=== PATIENT | male | born 1965 | race Caucasian/White ===

== ENCOUNTER 2018-04-22 12:00 | Observation (INO) | payer BC, SELFPAY ==
[2018-04-22] VITALS (9 sets, daily range): BP systolic 109–135; BP diastolic 70–80; PULSE 62–114; RESP 14–23; TEMP 36.6–37.2; O2SAT 95–98; BMI 40.6; BMI 40.5
[2018-04-22] MEDS: Aspirin 81 MG TAB.CHEW 324 MG PO (12:57)
[2018-04-22 13:10] LABS: Absolute Neutrophil Count 6.4 X10^3/uL (2.0-7.7); Basophil# 0.07 X10^3/uL; Basophil% 0.7 % (0-1); Eosinophil# 0.21 X10^3/uL; Hematocrit 44.6 % (40-54); Hemoglobin 14.5 g/dl (13.0-16.5); Lymphocyte % 28.5 % (19-41); Mean Corp Hgb Conc 32.5 g/gl (32-36); Mean Corpuscular Hgb 29.5 pg (27.0-32.0); Mean Corpuscular Volume 90.7 fL (80-94); Mean Platelet Vol. 9.3 fl (6.2-12.0); Monocyte# 0.86 X10^3/uL; Monocyte% 8.2 % (0-10); Neutrophil # 6.36 X10^3/uL (2.7-7.7); Neutrophil % 60.3 % (47-70); POSITIVE COUNT NO; POSITIVE DIFFERENTIAL NO; POSITIVE MORPHOLOGY NO; Platelet Count 259 K/mm3 (150-450); RBC Distribution Width CV 14.5 % (11.6-14.6); RBC Distribution Width SD 47.8 fl (35.1-43.9); Red Blood Count 4.92 M/mm3 (4.6-6.2); White Blood Count 10.5 K/mm3 (4.4-11.0)
--- NOTE | 2018-04-22 13:10 | RAD_ITS ---
STUDY: X-RAY CHEST REASON FOR EXAM: Male, 52 years old. Atrial fibrillation TECHNIQUE: Portable upright chest COMPARISON: None. FINDINGS: The lungs are clear and expanded. Suspected underlying mild COPD/emphysema. Correlate smoking history. Borderline cardiomegaly. Normal mediastinal silhouette. No acute osseous or upper abdominal process. RAD/Chest 1 View (Portable) IMPRESSION: No acute cardiopulmonary process. Electronically Signed: Oni Bragg, at 14:51 EDT Tel , Service support ,
[2018-04-22 13:27] LABS: Anion Gap 8 (5-15); BUN 11 mg/dL (7-18); BUN/Creat Ratio 8.9 RATIO (10-20); Calcium,Total 8.8 mg/dL (8.5-10.1); Chloride 103 mmol/L (98-107); Creatinine, Serum 1.23 mg/dL (0.70-1.30); EST Glomerular Filtration Rate 66 mL/min (>60); Est Glom Filt Rate - Afr Amer 80 mL/min (>60); Estimated Creatinine Clearance 71.05 ml/min; Glucose 224 mg/dL (74-106); Potassium 3.8 mmol/L (3.5-5.1); Sodium Level 138 mmol/L (136-145)
--- NOTE | 2018-04-22 15:35 | ED.VISSUMM ---
- ER Visit Summary Date of Service: 04/22/18 Chief Complaint: Fluttering in chest History of Present Illness: The patient is a 52 M with palpitations that started earlier today around 1130. It lasted about 15 minutes. He felt funny and became sweaty. He had some discomfort in his right throat. He denies any history of coronary disease, but he has multiple family members with coronary disease. He has a history of hypertension and smoking. His BMI is 40.6. He has never had a cardiac evaluation. Physical Examination: Patient is afebrile and vital signs are unremarkable except for heart rate of 109. The patient is sitting comfortably. No acute distress. Heart regular rate and rhythm. Lungs clear. Abdomen soft. Extremities nontender with no edema. Pulses strong and equal. Skin normal in color without pallor or diaphoresis. Test Results: EKG shows sinus rhythm at a rate of 110. No acute ischemia or infarction. No dysrhythmia noted. CBC, BMP, and troponin unremarkable except for a glucose of 224. Chest x-ray showed no acute findings. Emergency Department Course and Treatment: Patient placed on a monitor and treated with aspirin. Heart score is 4 and EMMA score is 1. I am recommending observation for cardiac testing. Will discuss with the hospitalist for further care. Treatment Plan: As above Disposition: Admission Impression: 1. Palpitations This note was generated with BackTrack dictation software. It may contain incorrect words, spelling, and punctuation that were not noted in review of the chart prior to signing ED Disposition - Plan for ED Patient: Chief Complaint: Palpitations Referrals: Care Physician,No Primary [Primary Care Provider] -
--- NOTE | 2018-04-22 16:28 | PCM.HP.STD ---
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 Patient did not have any chest pain whatsoever. 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 Patient did feel diaphoretic during the episode. Once the palpitations resolved patient was completely asymptomatic. Patient has never had any issues with this before. [] Past Medical History Medical History: Medical History (Last Updated 04/22/18 @ 16:30 by Reinier Min DO) HTN (hypertension) I10 Allergies Penicillins [PCN] Allergy (Verified 04/22/18 12:03) Hives Home Medications: Ambulatory Orders Medication Instructions Recorded Amlodipine [Norvasc] 5 mg PO DAILY 04/22/18 Lisinopril [Zestril] 40 mg PO DAILY 04/22/18 Psychiatric History: Anxiety Lives: Spouse/ Significant Other Smoking Status: Heavy Smoker (>10/day) Tobacco Use: Cigarettes Alcohol: None Drugs: None - *Family History Paternal History Items: Heart Disease Review of Systems Constitutional: Denies: Chills, Fever, Weight Change HEENT: Denies: Head Aches, Sinus Congestion, Sinus Drainage Cardiovascular: Reports: Palpitations. Denies: Chest Pain, Edema Respiratory: Denies: Cough, Shortness of breath at rest, Sputum production Gastrointestinal: Denies: Abdominal Pain, Nausea, Vomiting Genitourinary: Denies: Dysuria Musculoskeletal: Denies: Joint Pain, Joint Tenderness Skin: Denies: Rash, Wounds Neurological: Denies: Numbness, Tingling, Focal weakness Psychiatric: Denies: Anxiety, Depression, Homicidal Ideations, Suicidal Ideations Hematologic/ Lymphatic: Denies: Easy Bruising, Easy Bleeding, Hx of blood clot Comment: All review of systems are negative except as mentioned in the history of present illness and the other review of systems. VTE Information - Inpt Only VTE Present on Admission: No VTE Pharm Prophylaxis ordered?: Yes Patient Problems: Active and Suspected Problems Palpitations (Acute) - Physical Exam General: Alert, No apparent distress HEENT: Atraumatic, Normocephalic Oral: Moist Mucosa Neck: No Nodes, Thyroid Normal Size and Texture Lungs: Clear to auscultation, Normal air movement Cardiovascular: Regular rate, Regular Rhythm, Normal S1, Normal S2, No murmurs Abdomen: Bowel Sounds Present, Soft, Non Tender Extremities: No edema, No Calf Tenderness Skin: No rashes, No breakdown Musculoskeletal: No Tenderness to Palpation of Joints or Extremities Psych/Mental Status: Normal Affect, Appropriate Vital Signs Temp Pulse Resp BP Pulse Ox 36.9 C 78 16 117/74 96 04/22/18 12:01 04/22/18 16:05 04/22/18 16:05 04/22/18 16:05 04/22/18 16:05 Oxygen Flow Rate (L/min) 2 Oxygen Delivery Method Room Air Weight: 124.738 kg Body Mass Index (BMI) 40.6 Laboratory Tests Past 24 Hrs 04/22/18 04/22/18 12:10 12:10 WBC 10.5 RBC 4.92 Hgb 14.5 Hct 44.6 MCV 90.7 MCH 29.5 MCHC 32.5 RDW 14.5 RDW Differential 47.8 H Plt Count 259 MPV 9.3 Immature Gran % (Auto) 0.300 Neut % (Auto) 60.3 Lymph % (Auto) 28.5 Burke % (Auto) 8.2 Eos % (Auto) 2.0 Baso % (Auto) 0.7 Absolute Neuts (auto) 6.4 Absolute Lymphs (auto) 3.00 Total Counted Not Reportable Sodium 138 Potassium 3.8 Chloride 103 Carbon Dioxide 27.0 Anion Gap 8 BUN 11 Creatinine 1.23 Estim Creat Clear Calc 71.05 Est GFR (MDRD) Af Amer 80 Est GFR (MDRD) Non-Af 66 BUN/Creatinine Ratio 8.9 L Glucose 224 H Calcium 8.8 Troponin I < 0.015 EKG reviewed and showed no acute changes. Chest x-ray reviewed and showed no infiltrate nor edema. Assessment/Plan All Active Problems Palpitations (Acute) 1. Palpitations Concern for chest pain equivalent Patient will have troponins cycled and will undergo a stress test Patient will be monitored on telemetry. If cardiac workups comes back unremarkable then would recommend patient following up with his primary care doctor for evaluation of an event monitor. Check lipid panel and TSH 2. Hyperglycemia Patient denies any history of diabetes but his glucose was 224 Will put the patient on sliding scale insulin as well as check an A1c 3. DVT prophylaxis: Lovenox Code Visit OBSV E&M: 00208 Initial observation care L2
--- NOTE | 2018-04-22 16:33 | HP.PCM_ITS ---
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 Patient did not have any chest pain whatsoever. 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 Patient did feel diaphoretic during the episode. Once the palpitations resolved patient was completely asymptomatic. Patient has never had any issues with this before. [] Past Medical History Medical History: Medical History (Last Updated 04/22/18 @ 16:30 by Reinier Min DO) HTN (hypertension) I10 Allergies Penicillins [PCN] Allergy (Verified 04/22/18 12:03) Hives Home Medications: Ambulatory Orders Medication Instructions Recorded Amlodipine [Norvasc] 5 mg PO DAILY 04/22/18 Lisinopril [Zestril] 40 mg PO DAILY 04/22/18 Psychiatric History: Anxiety Lives: Spouse/ Significant Other Smoking Status: Heavy Smoker (>10/day) Tobacco Use: Cigarettes Alcohol: None Drugs: None - *Family History Paternal History Items: Heart Disease Review of Systems Constitutional: Denies: Chills, Fever, Weight Change HEENT: Denies: Head Aches, Sinus Congestion, Sinus Drainage Cardiovascular: Reports: Palpitations. Denies: Chest Pain, Edema Respiratory: Denies: Cough, Shortness of breath at rest, Sputum production Gastrointestinal: Denies: Abdominal Pain, Nausea, Vomiting Genitourinary: Denies: Dysuria Musculoskeletal: Denies: Joint Pain, Joint Tenderness Skin: Denies: Rash, Wounds Neurological: Denies: Numbness, Tingling, Focal weakness Psychiatric: Denies: Anxiety, Depression, Homicidal Ideations, Suicidal Ideations Hematologic/ Lymphatic: Denies: Easy Bruising, Easy Bleeding, Hx of blood clot Comment: All review of systems are negative except as mentioned in the history of present illness and the other review of systems. VTE Information - Inpt Only VTE Present on Admission: No VTE Pharm Prophylaxis ordered?: Yes Patient Problems: Active and Suspected Problems Palpitations (Acute) - Physical Exam General: Alert, No apparent distress HEENT: Atraumatic, Normocephalic Oral: Moist Mucosa Neck: No Nodes, Thyroid Normal Size and Texture Lungs: Clear to auscultation, Normal air movement Cardiovascular: Regular rate, Regular Rhythm, Normal S1, Normal S2, No murmurs Abdomen: Bowel Sounds Present, Soft, Non Tender Extremities: No edema, No Calf Tenderness Skin: No rashes, No breakdown Musculoskeletal: No Tenderness to Palpation of Joints or Extremities Psych/Mental Status: Normal Affect, Appropriate Vital Signs Temp Pulse Resp BP Pulse Ox 36.9 C 78 16 117/74 96 04/22/18 12:01 04/22/18 16:05 04/22/18 16:05 04/22/18 16:05 04/22/18 16:05 Oxygen Flow Rate (L/min) 2 Oxygen Delivery Method Room Air Weight: 124.738 kg Body Mass Index (BMI) 40.6 Laboratory Tests Past 24 Hrs 04/22/18 04/22/18 12:10 12:10 WBC 10.5 RBC 4.92 Hgb 14.5 Hct 44.6 MCV 90.7 MCH 29.5 MCHC 32.5 RDW 14.5 RDW Differential 47.8 H Plt Count 259 MPV 9.3 Immature Gran % (Auto) 0.300 Neut % (Auto) 60.3 Lymph % (Auto) 28.5 Elliott % (Auto) 8.2 Eos % (Auto) 2.0 Baso % (Auto) 0.7 Absolute Neuts (auto) 6.4 Absolute Lymphs (auto) 3.00 Total Counted Not Reportable Sodium 138 Potassium 3.8 Chloride 103 Carbon Dioxide 27.0 Anion Gap 8 BUN 11 Creatinine 1.23 Estim Creat Clear Calc 71.05 Est GFR (MDRD) Af Amer 80 Est GFR (MDRD) Non-Af 66 BUN/Creatinine Ratio 8.9 L Glucose 224 H Calcium 8.8 Troponin I < 0.015 EKG reviewed and showed no acute changes. Chest x-ray reviewed and showed no infiltrate nor edema. Assessment/Plan All Active Problems Palpitations (Acute) 1. Palpitations * Concern for chest pain equivalent * Patient will have troponins cycled and will undergo a stress test * Patient will be monitored on telemetry. If cardiac workups comes back unremarkable then would recommend patient following up with his primary care doctor for evaluation of an event monitor. * Check lipid panel and TSH 2. Hyperglycemia * Patient denies any history of diabetes but his glucose was 224 * Will put the patient on sliding scale insulin as well as check an A1c 3. DVT prophylaxis: Lovenox Code Visit OBSV E&M: 89244 Initial observation care L2
--- NOTE | 2018-04-22 16:41 | NURSING ---
CALLED [facility] IN ER. MEADE TO SEND PT.
[2018-04-22 17:31] LABS: Bedside Glucose 107 mg/dL (70-110)
[2018-04-22 17:37] LABS: Hemoglobin A1c 7.2 % (4.2-6.3)
[2018-04-22 21:51] LABS: Bedside Glucose 170 mg/dL (70-110)
[2018-04-23] VITALS (7 sets, daily range): BP systolic 108–128; BP diastolic 66–78; PULSE 40–84; RESP 14–18; TEMP 36.8–36.9; O2SAT 94–97
[2018-04-23 05:06] LABS: Hematocrit 41.3 % (40-54); Mean Corp Hgb Conc 31.5 g/gl (32-36); Mean Corpuscular Hgb 28.6 pg (27.0-32.0); Mean Platelet Vol. 9.1 fl (6.2-12.0); Platelet Count 231 K/mm3 (150-450); RBC Distribution Width CV 14.6 % (11.6-14.6); RBC Distribution Width SD 47.7 fl (35.1-43.9); Red Blood Count 4.54 M/mm3 (4.6-6.2); Scan Indicated on CBC? Y/N NO; White Blood Count 9.4 K/mm3 (4.4-11.0)
[2018-04-23 05:09] LABS: Partial Thromboplast Time 24.3 Seconds (24.1-36.2)
[2018-04-23 05:26] LABS: Anion Gap 9 (5-15); BUN 13 mg/dL (7-18); BUN/Creat Ratio 13.2 RATIO (10-20); Calcium,Total 8.3 mg/dL (8.5-10.1); Chloride 108 mmol/L (98-107); Cholesterol 182 mg/dL (200); Creatinine, Serum 0.98 mg/dL (0.70-1.30); EST Glomerular Filtration Rate 85 mL/min (>60); Est Glom Filt Rate - Afr Amer 103 mL/min (>60); Estimated Creatinine Clearance 89.18 ml/min; Glucose 118 mg/dL (74-106); High Density Lipoprotein 27 mg/dL; Sodium Level 143 mmol/L (136-145); Thyroid Stim Hormone (TSH) 2.27 uIU/mL (0.358-3.74); Triglycerides 208 mg/dL; Very Low Density Lipoprotein 42 mg/dL (5-40)
--- NOTE | 2018-04-23 05:55 | NM_ITS ---
CLINICAL: 52-year-old hypertensive, diabetic male with reported history of palpitations. REST-REGADENOSON 99m Tc SESTAMIBI MYOCARDIAL PERFUSION SPECT COMPARISON: None available FINDINGS: Following the intravenous administration of 15.0 mCi of 99m Tc sestamibi, the resting attenuation corrected myocardial perfusion acquisitions demonstrate uniform radiopharmaceutical concentration throughout all left ventricular segments. The patient was administered intravenous regadenoson (0.4 mgm). Following the intravenous administration of 5.0 mCi of 99m Tc sestamibi, the post regadenoson attenuation corrected images reveal likewise normal perfusion throughout all left ventricular myocardial segments. The post stress resting left ventricular ejection fraction is calculated to be 64.0 % by gated SPECT technique. Wall motion and end systolic thickening are considered normal. NM/Nuclear Stress Test - Chemical IMPRESSION: 1. NORMAL REST-REGADENOSON STRESS 99m Tc SESTAMIBI MYOCARDIAL PERFUSION SPECT. A. No evidence of pharmacologically induced left ventricular ischemia. B. Preservation of resting left ventricular systolic function. (Sonia et al, J Nucl Med 37: 105P, 1995). Electronically Signed: Oni Escalera DO at 14:20 EDT Tel , Service support ,
[2018-04-23] MEDS: Lisinopril 40 MG Tablet PO (06:01)
[2018-04-23] MEDS: Aspirin E.C. 81 MG Tablet PO (06:01)
[2018-04-23 06:56] LABS: Bedside Glucose 136 mg/dL (70-110)
--- NOTE | 2018-04-23 09:42 | PCM.CONS.C ---
Problem List (1) Palpitations Status: Acute Reason for Consult Date of Consultation: 04/23/18 History of Present Illness: The patient is a 52 year old M with past medical history significant for hypertension. 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 He felt his heart racing. No associated chest pain, neck tightness or shortness of breath. No syncope or presyncope. [place] a little lightheaded though. The symptoms lasted a few minutes and then resolve on their own. According to the patient, he broke out into cold sweat with them. Denies any previous such symptoms. Denies any history of angina or dyspnea either at rest or with exertion. Denies any previous history of cardiac rhythm problems. [] Past Medical History Allergies/Adverse Reactions: Allergies Penicillins [PCN] Allergy (Verified 04/22/18 12:03) Hives Home Medications: Ambulatory Orders Medication Instructions Recorded Amlodipine [Norvasc] 5 mg PO DAILY 04/22/18 Lisinopril [Zestril] 40 mg PO DAILY 04/22/18 Psychiatric History: Anxiety - *Family History Paternal History Items: Heart Disease Lives: Spouse/ Significant Other Smoking Status: Heavy Smoker (>10/day) Tobacco Use: Cigarettes Alcohol: None Drugs: None Review of Systems - Review of Systems General: Denies: Fever, Chills, Night Sweats, Anorexia, Weight Loss Cardiovascular: Denies: Chest Discomfort, Chest Discomfort at Rest, Chest Discomfort with Exertion, Chest Pressure, Chest Tightness, Chest Heaviness, Shortness of Breath, Shortness of Breath at Rest, Orthopnea, PND Respiratory: Reports: - - Snores loudly at night. Also admits to having apneic episodes. Suspects he has sleep apnea Gastrointestinal: Denies: Abdominal Discomfort, Jaundice, Nausea, Emesis, Hematemesis Neurological: Denies: History of TIA, History of CVA Psychiatric: Denies: Anxiety, Depression Endocrine: Denies: Heat Intolerance, Cold Intolerance Hematologic/ Lymphatic: Denies: Easy Brusing, Easy Bleeding Subjectve: Appears comfortable. Abdominal obesity Objective: Vital Signs Temp Pulse Resp BP Pulse Ox 98.4 F 77 14 128/66 H 97 04/23/18 05:00 04/23/18 07:21 04/23/18 05:00 04/23/18 05:00 04/23/18 05:00 Oxygen Delivery Method Room Air Weight: 124.5 kg Body Mass Index (BMI) 40.5 Intake and Output for Last 24 Hours 04/21/18 04/22/18 04/23/18 23:59 23:59 23:59 Intake Total 580 / 580 60 / 60 Balance 580 / 580 60 / 60 General: Healthy Appearing, Awake, Alert, Oriented x 3, Obese HEENT: Atraumatic, Normocephalic Oral: Moist Mucosa Neck: Supple Lungs: Clear to auscultation Cardiovascular: Regular Rhythm, Normal S1, Normal S2 Abdomen: Bowel Sounds Present, Soft Extremities: No edema Neurological: No Focal Motor or Sensory Deficit Psych/Mental Status: Appropriate 04/22/18 23:24: Troponin I < 0.015 04/23/18 02:25: Troponin I < 0.015 04/23/18 04:50: Sodium 143, Potassium 4.0, Chloride 108 H, Carbon Dioxide 26.0, Anion Gap 9, BUN 13, Creatinine 0.98, Est GFR (MDRD) Af Amer 103, Est GFR (MDRD) Non-Af 85, BUN/Creatinine Ratio 13.2, Glucose 118 H, Calcium 8.3 L, Troponin I < 0.015, Triglycerides 208 H, Cholesterol 182, LDL Cholesterol 113, VLDL Cholesterol 42 H, HDL Cholesterol 27 L 04/23/18 04:50: WBC 9.4, RBC 4.54 L, Hgb 13.0, Hct 41.3, MCV 91.0, MCH 28.6, MCHC 31.5 L, RDW 14.6, RDW Differential 47.7 H, Plt Count 231, MPV 9.1 04/23/18 04:50: PT 13.0, INR 1.0, APTT 24.3 Rhythm: Normal sinus rhythm. Marked sinus arrhythmia during the night EKG: Normal sinus rhythm ECHO: Pending Stress Test: Pending Cardiac Cath: PCI: CT Surgery: Holter monitor: EPS: PPM: CXR: Chest CT Scan: Assessment/Plan 1. Transient palpitations with diaphoresis. Patient already had pharmacological stress test and an echocardiogram done this morning. Await results. If they failed to show any significant abnormality, then will recommend event monitoring as outpatient to evaluate for paroxysmal atrial fibrillation 2. Symptoms strongly suggestive of sleep apnea. Consider sleep study. Follow as per primary care physician. Discussed with patient 3. Obesity. Counseled to lose weight 4. Check d-dimer
[2018-04-23] MEDS: amLODIPine 5 MG Tablet PO (09:51)
--- NOTE | 2018-04-23 10:25 | ECHOCS_ITS ---
Reason For Study: Palpitations Procedure This was a 2D Doppler, Color Flow transthoracic echocardiogram. The study was technically difficult. Due to body habitus. Contrast injection was performed. Exam performed portable in patient room. Left Ventricle Normal size and thickness. The estimated ejection fraction is 65 %. No evidence for diastolic dysfunction. Right Ventricle Normal RV size. Normal systolic function. Atria The left atrium is mildly enlarged. Normal right atrium. Mitral Valve The mitral valve is structurally normal. No prolapse or stenosis seen. Tricuspid Valve Normal tricuspid valve. Trivial tricuspid valve insufficiency. Aortic Valve Not well visualized in short axis. There is no aortic stenosis. No aortic valve insufficiency. Pulmonic Valve The pulmonic valve is not well visualized. Great Vessels Normal inferior vena cava. Pericardium/Pleural Epicardial fat. Medication Diluted definity 4.0ml given slow IV push to enhance endocardial definition. MMode/2D Measurements & Calculations LVIDd: 5.1 cm IVSd: 1.4 cm Ao root diam: 3.3 cm LVIDs: 3.1 cm LVPWd: 1.3 cm LA dimension: 3.7 cm RVDd: 3.3 cm FS: 38.8 % LAV(MOD-bp): 76.8 ml LAV(MOD-bp) Indexed: 32.5 ml/m2 LA A4 area: 25.0 cm2 RA A4 area: 14.8 cm2 LAV(MOD-sp2): 68.8 ml LAV(MOD-sp4): 78.1 ml Doppler Measurements & Calculations MV E max pako: 113.5 cm/sec Lat Peak E' Pako: 12.3 cm/sec Med Peak E' Pako: 13.8 cm/sec MV A max pako: 74.6 cm/sec E/E' lat: 9.3 E/E' med: 8.2 MV E/A: 1.5 Ao V2 max: 162.9 cm/sec LV V1 max: 111.0 cm/sec PA V2 max: 110.5 cm/sec Ao max P.6 mmHg LV V1 max P.9 mmHg TR max pako: 176.2 cm/sec TR max P.4 mmHg Interpretation Summary The estimated ejection fraction is 65 %. No evidence for diastolic dysfunction. The left atrium is mildly enlarged. Ordering Physician: Julieta Lay Performed By: Yudith Tang RDCS, RVT
[2018-04-23 10:26] LABS: D-Dimer Quantitative (DVT/PE) 0.37 FEU/ug/m (0.27-0.49)
[2018-04-23 12:30] LABS: Bedside Glucose 142 mg/dL (70-110)
--- NOTE | 2018-04-23 13:27 | PCM.PN.HOSP ---
Patient Problems: Active and Suspected Problems (Last Updated 04/22/18 @ 16:30 by Reinier Min DO) Palpitations (Acute) Subjective: No chest pain, nor palpitations. Vitals/I&O's: Vital Signs Temp Pulse Resp BP Pulse Ox 36.9 C 84 18 117/77 94 04/23/18 09:54 04/23/18 11:32 04/23/18 09:54 04/23/18 09:54 04/23/18 09:54 Oxygen Delivery Method Room Air Weight: 124.5 kg Body Mass Index (BMI) 40.5 Intake and Output for Last 24 Hours 04/21/18 04/22/18 04/23/18 23:59 23:59 23:59 Intake Total 580 / 580 410 / 410 Balance 580 / 580 410 / 410 General: Alert, Cooperative, No apparent distress HEENT: Atraumatic, Normocephalic Oral: Moist Mucosa, No Gingival or Mucosal Lesions/ Ulcerations Neck: No Nodes, Thyroid Normal Size and Texture Lungs: Clear to auscultation, Normal air movement, No rhonchi, No wheeze Cardiovascular: Regular rate, Regular Rhythm, Normal S1, Normal S2, No murmurs Abdomen: Bowel Sounds Present, Soft, Non Tender, Non-Distended, No Hepato-splenomegaly Extremities: No edema, No Calf Tenderness Skin: No rashes, No breakdown Psych/Mental Status: Normal Affect, Appropriate Laboratory Results 04/22/18 17:26: POC Glucose 107 04/22/18 21:42: POC Glucose 170 H 04/22/18 23:24: Troponin I < 0.015 04/23/18 02:25: Troponin I < 0.015 04/23/18 04:50: Sodium 143, Potassium 4.0, Chloride 108 H, Carbon Dioxide 26.0, Anion Gap 9, BUN 13, Creatinine 0.98, Estim Creat Clear Calc 89.18, Est GFR (MDRD) Af Amer 103, Est GFR (MDRD) Non-Af 85, BUN/Creatinine Ratio 13.2, Glucose 118 H, Calcium 8.3 L, Troponin I < 0.015, Triglycerides 208 H, Cholesterol 182, LDL Cholesterol 113, VLDL Cholesterol 42 H, HDL Cholesterol 27 L, TSH 2.27 04/23/18 04:50: WBC 9.4, RBC 4.54 L, Hgb 13.0, Hct 41.3, MCV 91.0, MCH 28.6, MCHC 31.5 L, RDW 14.6, RDW Differential 47.7 H, Plt Count 231, MPV 9.1 04/23/18 04:50: PT 13.0, INR 1.0, APTT 24.3 04/23/18 04:50: D-Dimer Quant (PE/DVT) 0.37 04/23/18 06:49: POC Glucose 136 H 04/23/18 12:24: POC Glucose 142 H Current Medications Acetaminophen (Tylenol) 650 mg PO Q6H PRN PRN PRN Reason: Mild Pain (1-3)/Temp > 100.7 F Amlodipine Besylate (Norvasc) 5 mg PO DAILY [facility] Last Admin: 04/23/18 09:51 Dose: 5 mg Aspirin (Ecotrin) 81 mg PO DAILY@0800 [facility] Last Admin: 04/23/18 06:01 Dose: 81 mg Dextrose (D50w Syringe) 0 gm IV X1 PRN; Protocol PRN Reason: Hypoglycemia Enoxaparin Sodium (Lovenox) 40 mg SC DAILY@1000 [facility] Last Admin: 04/23/18 09:51 Dose: Not Given Glucagon () 1 mg IM .X1 PRN PRN Reason: Hypoglycemia Insulin Human Lispro (Humalog Kwikpen (Bkc)) 0 unit SQ TIDAC [facility] PRN Reason: Protocol Last Admin: 04/23/18 12:28 Dose: Not Given Lisinopril (Zestril) 40 mg PO DAILY [facility] Last Admin: 04/23/18 06:01 Dose: 40 mg Lorazepam (Ativan) 0.5 mg PO Q12H PRN PRN PRN Reason: ANXIETY Magnesium Hydroxide (Milk Of Magnesia) 30 ml PO DAILY PRN PRN Reason: Constipation Nitroglycerin (Nitrostat) 0.4 mg SUBLINGUAL Q5M PRN PRN Reason: CHEST PAIN Ondansetron HCl (Zofran) 4 mg IV Q8H PRN PRN PRN Reason: NAUSEA Oxycodone HCl (Oxyir) 5 - 10 mg PO Q4H PRN PRN PRN Reason: MOD-SEVERE PAIN (4-10/10) Sodium Chloride () 5 - 30 ml IV UD PRN PRN Reason: SALINE FLUSH Medical Necessity - Tobacco Use Smoking Status: Heavy Smoker (>10/day) Tobacco Use: Cigarettes Assessment/Plan All Active Problems (Last Updated 04/22/18 @ 16:30 by Reinier Min DO) Palpitations (Acute) 1. Palpitations Concern for chest pain equivalent Patient will have troponins cycled and will undergo a stress test Patient will be monitored on telemetry. If cardiac workups comes back unremarkable then would recommend patient following up with his primary care doctor for evaluation of an event monitor. Check lipid panel and TSH Echo showed an EF 65% Stress test pending. 2. DM2 Blood sugars have been consistently elevated. Initial recommendation is modifying diet, but may ultimately require medication. 3. DVT prophylaxis: Lovenox Code Visit OBSV E&M: 47510 Subsequent observation care L2
--- NOTE | 2018-04-23 13:31 | PN_ITS ---
Patient Problems: Active and Suspected Problems (Last Updated 04/22/18 @ 16:30 by Reinier Min DO ) Palpitations (Acute) Subjective: No chest pain, nor palpitations. Vitals/I&O's: Vital Signs Temp Pulse Resp BP Pulse Ox 36.9 C 84 18 117/77 94 04/23/18 09:54 04/23/18 11:32 04/23/18 09:54 04/23/18 09:54 04/23/18 09:54 Oxygen Delivery Method Room Air Weight: 124.5 kg Body Mass Index (BMI) 40.5 Intake and Output for Last 24 Hours 04/21/18 04/22/18 04/23/18 23:59 23:59 23:59 Intake Total 580 / 580 410 / 410 Balance 580 / 580 410 / 410 General: Alert, Cooperative, No apparent distress HEENT: Atraumatic, Normocephalic Oral: Moist Mucosa, No Gingival or Mucosal Lesions/ Ulcerations Neck: No Nodes, Thyroid Normal Size and Texture Lungs: Clear to auscultation, Normal air movement, No rhonchi, No wheeze Cardiovascular: Regular rate, Regular Rhythm, Normal S1, Normal S2, No murmurs Abdomen: Bowel Sounds Present, Soft, Non Tender, Non-Distended, No Hepato- splenomegaly Extremities: No edema, No Calf Tenderness Skin: No rashes, No breakdown Psych/Mental Status: Normal Affect, Appropriate Laboratory Results 04/22/18 17:26: POC Glucose 107 04/22/18 21:42: POC Glucose 170 H 04/22/18 23:24: Troponin I < 0.015 04/23/18 02:25: Troponin I < 0.015 04/23/18 04:50: Sodium 143, Potassium 4.0, Chloride 108 H, Carbon Dioxide 26.0, Anion Gap 9, BUN 13, Creatinine 0.98, Estim Creat Clear Calc 89.18, Est GFR ( MDRD) Af Amer 103, Est GFR (MDRD) Non-Af 85, BUN/Creatinine Ratio 13.2, Glucose 118 H, Calcium 8.3 L, Troponin I < 0.015, Triglycerides 208 H, Cholesterol 182, LDL Cholesterol 113, VLDL Cholesterol 42 H, HDL Cholesterol 27 L, TSH 2.27 04/23/18 04:50: WBC 9.4, RBC 4.54 L, Hgb 13.0, Hct 41.3, MCV 91.0, MCH 28.6, MCHC 31.5 L, RDW 14.6, RDW Differential 47.7 H, Plt Count 231, MPV 9.1 04/23/18 04:50: PT 13.0, INR 1.0, APTT 24.3 04/23/18 04:50: D-Dimer Quant (PE/DVT) 0.37 04/23/18 06:49: POC Glucose 136 H 04/23/18 12:24: POC Glucose 142 H Current Medications Acetaminophen (Tylenol) 650 mg PO Q6H PRN PRN PRN Reason: Mild Pain (1-3)/Temp > 100.7 F Amlodipine Besylate (Norvasc) 5 mg PO DAILY [facility] Last Admin: 04/23/18 09:51 Dose: 5 mg Aspirin (Ecotrin) 81 mg PO DAILY@0800 [facility] Last Admin: 04/23/18 06:01 Dose: 81 mg Dextrose (D50w Syringe) 0 gm IV X1 PRN; Protocol PRN Reason: Hypoglycemia Enoxaparin Sodium (Lovenox) 40 mg SC DAILY@1000 [facility] Last Admin: 04/23/18 09:51 Dose: Not Given Glucagon () 1 mg IM .X1 PRN PRN Reason: Hypoglycemia Insulin Human Lispro (Humalog Kwikpen (Bkc)) 0 unit SQ TIDAC [facility] PRN Reason: Protocol Last Admin: 04/23/18 12:28 Dose: Not Given Lisinopril (Zestril) 40 mg PO DAILY [facility] Last Admin: 04/23/18 06:01 Dose: 40 mg Lorazepam (Ativan) 0.5 mg PO Q12H PRN PRN PRN Reason: ANXIETY Magnesium Hydroxide (Milk Of Magnesia) 30 ml PO DAILY PRN PRN Reason: Constipation Nitroglycerin (Nitrostat) 0.4 mg SUBLINGUAL Q5M PRN PRN Reason: CHEST PAIN Ondansetron HCl (Zofran) 4 mg IV Q8H PRN PRN PRN Reason: NAUSEA Oxycodone HCl (Oxyir) 5 - 10 mg PO Q4H PRN PRN PRN Reason: MOD-SEVERE PAIN (4-10/10) Sodium Chloride () 5 - 30 ml IV UD PRN PRN Reason: SALINE FLUSH Medical Necessity - Tobacco Use Smoking Status: Heavy Smoker (>10/day) Tobacco Use: Cigarettes Assessment/Plan All Active Problems (Last Updated 04/22/18 @ 16:30 by Reniier Min DO) Palpitations (Acute) 1. Palpitations * Concern for chest pain equivalent * Patient will have troponins cycled and will undergo a stress test * Patient will be monitored on telemetry. If cardiac workups comes back unremarkable then would recommend patient following up with his primary care doctor for evaluation of an event monitor. * Check lipid panel and TSH * Echo showed an EF 65% * Stress test pending. 2. DM2 * Blood sugars have been consistently elevated. * Initial recommendation is modifying diet, but may ultimately require medication. 3. DVT prophylaxis: Lovenox Code Visit OBSV E&M: 13512 Subsequent observation care L2
--- NOTE | 2018-04-23 14:40 | DCINST_ITS ---
- Discharge Diagnoses Current Active Problems: Current Active and Chronic Problems (Last Updated 04/22/18 @ 16:30 by Reinier Min DO) Palpitations (Acute) You will use the following diet at home:: No restrictions Your food should be the consistency of: Regular Your liquids should be the consistency of: Regular/Thin Discharge Activity: Return to Normal Activity Call your doctor if you observe: Fever of 101 or Higher, Fainting spells, Chest pain, Increased palpitations (irregular heartbeat) Allergies/Adverse Reactions: Allergies Penicillins [PCN] Allergy (Verified 04/22/18 12:03) Hives Medications to take at Discharge Amlodipine [Norvasc] 5 mg PO DAILY 04/22/18 Lisinopril [Zestril] 40 mg PO DAILY 04/22/18 Primary Care Physician: Care Physician,No Primary [Primary Care Provider] - Test Results: Test results from this visit will be discussed in further detail at your follow- up appointment, if applicable. Please Follow Up With: [facility] - follow up for palpitations When: 2-4 weeks Proposed Discharge Date: 04/23/18
--- NOTE | 2018-04-23 14:41 | DS.PCM_ITS ---
Discharge Date and Diagnosis - Problem List Patient Problems: Active and Suspected Problems (Last Updated 04/22/18 @ 16:30 by Reinier Min DO ) Palpitations (Acute) Date of Admission: 04/22/18 Date of Discharge: 04/23/18 - Primary Discharge Diagnosis Active and Suspected Problems (Last Updated 04/22/18 @ 16:30 by Reinier Min DO ) Palpitations (Acute) Hospital Course and Treatment Imaging Results: 04/23/18 05:55 Nuclear Stress Test - Chemical [NM] AM (NON MEDS) 04/23/18 10:25 Echo Complete W/ Contrast [ECHO] Routine [facility]ire[facility] Procedures: 2-D Echocardiogram, Stress test Summary of Care Provided: The patient is a 52 year old M presents with palpitations. Patient was evaluated for chest pain equivalents. Patient underwent an echocardiogram that was unremarkable as well as a stress test. Heart rhythm was normal no any atrial fibrillation. Patient will need follow-up with cardiology in regards to getting arrange for monitor. Patient never had palpitations before. Patient also needs to be established with a primary care physician as well. [] Discharge Diet: No Restrictions Discharge Activity: Return to Normal Activity Call your doctor if you observe: Fever of 101 or Higher, Fainting spells, Chest pain, Increased palpitations (irregular heartbeat) Home Medications: Medications to take at Discharge Amlodipine [Norvasc] 5 mg PO DAILY 04/22/18 Lisinopril [Zestril] 40 mg PO DAILY 04/22/18 Primary Care Physician: Care Physician,No Primary [Primary Care Provider] - Please Follow Up With: [facility] - follow up for palpitations When: 2-4 weeks Disposition: Home Minutes spent on discharge:: 28 Patient Condition:: Good Medical Necessity - Tobacco Use Smoking Status: Heavy Smoker (>10/day) Tobacco Use: Cigarettes Meaningful Use Info Meaningful Use Diagnoses (Choose all that apply): None applicable Code Visit OBSV E&M: 18715 Observation care discharge
--- NOTE | 2018-04-25 15:26 | STRESSREP ---
Stress Test Report Pharmacologic myocardial perfusion stress test. 52-year-old man with a history of chest pain. Stress protocol: Resting EKG demonstrates normal sinus rhythm with rate of 78 bpm normal intervals and noted. 0.4 mg of regadenoson was infused per usual protocol from followed by rapid intravenous saline flush injection. Continuous EKG when transported performed the maximum heart rate attained was 102 bpm which was 60% of maximum predicted heart rate in the maximum workload was 1 metabolic equivalent. At rest there were no ST or T-wave changes noted suggest abnormal flow reserve and at peak infusion no ST or T-wave changes were noted to suggest abnormal flow reserve. The resting blood pressure is 130/86 with a final blood pressure of 124/84. No clinical angina was noted. There were no ST or T-wave changes noted suggest abnormal flow reserve. Myocardial perfusion protocol. This would be undertaken by the radiologist. Conclusion: Pharmacologic myocardial perfusion stress test with no EKG changes for abnormal flow reserve. Nuclear images dictated separately.
== END 2018-04-23 14:39 | disposition home or self-care (01) ==
LOC: ED 16:33 → PCU 16:45
PROVIDERS: Hospitalist; Internal Medicine Cardiovascular Disease; Emergency Provider Emergency Medicine
DX: R00.2 Palpitations (principal); F17.210 Nicotine dependence, cigarettes, uncomplicated; Z79.899 Other long term (current) drug therapy; E66.9 Obesity, unspecified; Z68.41 Body mass index [BMI] 40.0-44.9, adult; Z71.3 Dietary counseling and surveillance; E11.9 Type 2 diabetes mellitus without complications; I10 Essential (primary) hypertension; R00.0 Tachycardia, unspecified; I07.1 Rheumatic tricuspid insufficiency; I51.7 Cardiomegaly
CPT/HCPCS: 36415; 71045; 78452; 80048; 80061; 82962; 83036; 84443; 84484; 85025; 85027; 85379; 85610; 85730; 93005; 93017; 93306; 99218; 99283; 99406; A9500; Q9957; A4216; C8929; G0378; J2785